=== PATIENT | female | born 1940 | race Caucasian/White ===

== ENCOUNTER 2025-02-03 14:15 | Inpatient (IN) | payer MEDICARE ==
[~2025-02-03] VITALS: Ht 149.8 cm; Wt 43.3 kg
[~2025-02-03 14:15] MED LIST: MEMANTINE HCL5 MG PO; MYRBETRIQ50 M1 PO; OMNICEF300 MG PO; VITAMIN B12500 MC2 PO
[2025-02-03 14:28] VITALS: BP 138/68
[2025-02-03 15:14] LABS: BASO # 0.0 10*3/uL (0.0-0.1); BASO % 0.2 % (0.0-1.0); EOS # 0.1 10*3/uL (0.0-0.4); EOS % 0.7 % (1.0-4.0); MEAN CELL VOLUME 96.7 fl (81.0-99.0); MEAN CORPUSCULAR HGB 31.6 pg (27.0-31.0); MEAN PLATELET VOLUME 9.4 fl (9.6-12.3); MONO # 0.6 10*3/uL (0.1-1.0); MONO % 6.7 % (3.0-9.0); NEUT # 6.5 10*3/uL (2.3-7.9); NEUT % 78.2 % (47.0-73.0); NUCLEATED RED BLOOD CELL 0.0 % (0.0-0.0); NUCLEATED RED BLOOD CELL 0.0 10*3/uL (0.0-0.0); PLATELET COUNT AUTOMATED 191 10*3/uL (130-400); RED CELL DISTRI WIDTH 13.6 % (0-14.5)
[2025-02-03 15:33] LABS: BUN 15 mg/dl (9-23)
[2025-02-03] MEDS ORDERED: SODIUM CHLORIDE 0.9% 500 ML IV ONE (15:45)
[2025-02-03 16:20] LABS: BILIRUBIN Negative (Negative); BLOOD 2+ (Negative); CLARITY Turbid (Clear); COLOR Yellow (Yellow); KETONE Trace (Negative); LEUKO ESTERASE 3+ (Negative); NITRITE Positive (Negative); PH 5.5 (4.5-8.0); SPECIFIC GRAVITY 1.015 (1.001-1.030); UROBILINOGEN 1.0 E.U./dl (0.0-1.0)
[2025-02-03 16:31] LABS: WBC TNTC wbc/hpf (0-5)
[2025-02-03 16:32] LABS: BACTERIA 4+
[2025-02-03 18:10] VITALS: BP 159/94
[2025-02-03] MEDS ORDERED: ACETAMINOPHEN 325 MG TAB PO PRN (18:30)
[2025-02-03] MEDS ORDERED: Acetaminophen/Hydrocodone 5 MG/325 MG TABLET PO PRN (18:30)
[2025-02-03] MEDS ORDERED: Ondansetron Hydrochloride 4 MG/2 ML VIAL IV PRN (18:30)
[2025-02-03] MEDS ORDERED: TEMAZEPAM 15 MG CAP PO PRN (18:30)
[2025-02-03] MEDS ORDERED: BISACODYL 5 MG TAB PO PRN (18:30)
[2025-02-03 19:56] VITALS: BP 112/87
[2025-02-04] VITALS: BP 153/84
[2025-02-04 04:30] LABS: BASO # 0.0 10*3/uL (0.0-0.1); BASO % 0.5 % (0.0-1.0); EOS # 0.1 10*3/uL (0.0-0.4); EOS % 2.2 % (1.0-4.0); MEAN CELL VOLUME 95.6 fl (81.0-99.0); MEAN CORPUSCULAR HGB 31.4 pg (27.0-31.0); MEAN PLATELET VOLUME 9.8 fl (9.6-12.3); MONO # 0.6 10*3/uL (0.1-1.0); MONO % 10.2 % (3.0-9.0); NEUT # 3.3 10*3/uL (2.3-7.9); NEUT % 52.6 % (47.0-73.0); NUCLEATED RED BLOOD CELL 0.0 % (0.0-0.0); NUCLEATED RED BLOOD CELL 0.0 10*3/uL (0.0-0.0); PLATELET COUNT AUTOMATED 186 10*3/uL (130-400); RED CELL DISTRI WIDTH 13.7 % (0-14.5)
[2025-02-04 04:54] LABS: BUN 11 mg/dl (9-23); SGPT/ALT 8 U/L (5-49)
[2025-02-04 08:00] VITALS: BP 162/66
[2025-02-04] MEDS ORDERED: Memantine Hydrochloride 5 MG TAB PO SCH (10:00)
[2025-02-04 12:00] VITALS: BP 136/76
[2025-02-04 16:00] VITALS: BP 142/62
[2025-02-04 20:00] VITALS: BP 149/77
[2025-02-05] VITALS: BP 160/77
[2025-02-05 08:00] VITALS: BP 179/74
[2025-02-05] MEDS ORDERED: LISINOPRIL 5 MG TAB PO SCH (10:00)
[2025-02-05 11:49] VITALS: BP 143/77
[2025-02-05 16:00] VITALS: BP 104/59
[2025-02-05 20:00] VITALS: BP 107/62
[2025-02-06] VITALS: BP 95/57
[2025-02-06 06:56] LABS: BUN 25 mg/dl (9-23)
[2025-02-06 08:00] VITALS: BP 141/68
[2025-02-06] MEDS ORDERED: LISINOPRIL5 MG PO (11:11)
[2025-02-06] MEDS ORDERED: OMNICEF300 MG PO (11:11)
[2025-02-06 12:00] VITALS: BP 140/73
== END 2025-02-06 12:40 | disposition home health service (06) | DRG 689 ==
LOC: ED 14:15 → EDHOLD 17:04 → 5E 17:04 → 4E 17:04 → 5E 17:16 → 4E 02-04 06:34
PROVIDERS: Nurse Practitioner Family; ADMIT Internal Medicine; ATTEND Internal Medicine
DX: N39.0 Urinary tract infection, site not specified (principal); G93.41 Metabolic encephalopathy; I10 Essential (primary) hypertension; R73.9 Hyperglycemia, unspecified; G30.9 Alzheimer's disease, unspecified; F02.80 Dementia in other diseases classified elsewhere, unspecified severity, without behavioral disturbance, psychotic disturbance, mood disturbance, and anxiety